=== PATIENT | female | born 1995 | race Caucasian/White ===

== ENCOUNTER → 2016-04-16 | Outpatient (CLI) | payer OTHER ==
--- NOTE | 2016-04-16 17:51 | US ---
Second Trimester Obstetrical Sonography Clinical History: 20-year-old female presenting for anatomic survey and biometry. Technique: A curvilinear 5 MHz transducer was used to sonographically evaluate the fetus and the plac enta. M-mode Doppler is used. Cine clips were acquired at the level of the heart. Comparison Study: None currently available. LMP: November 24, 2015, indicating an age of 20 weeks 4 days, and an estimated date of delivery of August 30, 2016. Findings: There is a single viable intrauterine gestation with the fetus currently breech in presenta tion. The placenta is anteriorly-situated. There is no evidence of previa. The maternal cervical michelle th is measured transabdominally at 3.8 cm. The heart rate is 140 beats per minute. There is a t hree-vessel cord and eccentric cord insertion. The maternal ovaries were not identified. A vielka omic survey reveals a normal appearance to the craniovertebral axis. The lateral ventricular diameter is 7.9 mm, the cisterna magna is 4.2 mm, and the nuchal fold is 1.9 mm. A sagittal facial profile is seen with the nasal bone measuring 6.6 mm. Coronal imaging of the nasal-labial anatomy and the alveolar ridge appear normal. There is a four-chambered heart with right and left ventricular outflo w tracts. The diaphragm, stomach, right and left kidneys, urinary bladder, and the upper and lower ex tremities are identified. biometry is as follows: The biparietal diameter is 50 mm, corresponding to an age of 21 weeks 1 day +/- 1 week 6 days, which is at the 68th percentile. The head circumference is 188 mm corresponding to an age of 21 weeks 1 day +/- 1 week 4 days, which i s at the 65th percentile. The abdominal circumference is 162 mm corresponding to an age of 21 weeks 3 days +/- 2 weeks 1 day, w hich is at the 69th percentile. The femur length is 35 mm corresponding to an age of 21 weeks 2 days +/- 1 week 6 days, which is at t 63rd percentile. The humeral length is 34 mm, corresponding to an age of 21 weeks 5 days, and the transcerebellar diam eter is 22 mm corresponding to an age of 21 weeks 0 days +/- 1 week 0 days for a composite gestationa l age of 21 weeks 2 days. The estimated weight is 408 grams +/- 60 grams, which is 14 ounces +/- 2 ounces, which is at th e 80th percentile. The head circumference to abdominal circumference ratio is normal, measuring 1.16. The femur length t o biparietal diameter ratio is 71%, and the femur length to abdominal circumference ratio is 22%. Impression: There is a single viable intrauterine gestation with concordant biometry, and no overt fe jonathon structural anomaly.
== END ==
LOC: FIMAGING 09:57
PROVIDERS: ATTEND Family Medicine
DX: Z34.02 Encounter for supervision of normal first pregnancy, second trimester (principal); Z3A.14 14 weeks gestation of pregnancy